=== PATIENT | female | born 1980 | race Caucasian/White ===

== ENCOUNTER → 2025-05-11 | Outpatient (CLI) | payer BC, SELFPAY ==
[2025-05-12 08:58] LABS: BVAG Candida Negative (Negative); Bacterial Vaginosis Markers Negative (Negative); Candida glabrata Negative (Negative); Candida krusei PCR Negative (Negative); Trichomonas Negative (Negative)
== END | disposition home or self-care (01) ==
LOC: SLDO 14:30
PROVIDERS: Referring Provider Specialist; Visit Provider Specialist
DX: B37.89 Other sites of candidiasis (principal); N76.0 Acute vaginitis; A59.01 Trichomonal vulvovaginitis
CPT/HCPCS: 81514

== ENCOUNTER → 2025-06-07 | Outpatient (CLI) | payer BC, SELFPAY ==
--- NOTE | 2025-06-07 10:30 | XR_ITS ---
Examination: Screening digital mammography, bilateral Computer aided detection 3-D breast Tomosynthesis, bilateral Date and time of exam: June 07, 2025 0958 hours Compared to mammograms dating to November 14, 2021 Indication: Screening Technique: Nonmagnified MLO, CC views of the breasts to been obtained, reconstructed from 3-D Tomosynthesis images. R2 computer aided detection program utilized for evaluation of suspicious masses and/or abnormal calcifications. 3-D Tomosynthesis images obtained. Findings: The breasts are heterogeneously dense, which may obscure small masses Circumscribed nodules left breast again noted likely corresponding to cyst described on left breast sonogram and right breast sonogram today No suspicious masses Impression: BI-RADS category II: Benign Findings. Recommend 1 year follow-up mammogram.
== END | disposition home or self-care (01) ==
LOC: CDIM 09:51
PROVIDERS: PCP Family Medicine; Referring Provider Specialist; Visit Provider Specialist
DX: Z12.31 Encounter for screening mammogram for malignant neoplasm of breast (principal)
CPT/HCPCS: 77063; 77067

== ENCOUNTER → 2025-06-09 | Outpatient (CLI) | payer BC, SELFPAY ==
[2025-06-10 09:10] LABS: BVAG Candida Negative (Negative); Bacterial Vaginosis Markers Negative (Negative); Candida glabrata Negative (Negative); Candida krusei PCR Negative (Negative); Trichomonas Negative (Negative)
== END | disposition home or self-care (01) ==
LOC: SLDO 14:46
PROVIDERS: Referring Provider Specialist; Visit Provider Specialist
DX: N76.0 Acute vaginitis (principal); A59.01 Trichomonal vulvovaginitis; B37.89 Other sites of candidiasis
CPT/HCPCS: 81514

== ENCOUNTER 2025-08-01 07:55 | Day surgery (SDC) | payer BC, SELFPAY ==
--- NOTE | 2025-07-29 10:58 | ESHP_ITS ---
RE: TULIO DAVNEPORT : 1980 DATE OF ADMISSION: 08/01/2025 HISTORY OF PRESENT ILLNESS: This is a 44-year-old 3, para 3 with cervical dysplasia, who presents for LEEP cone biopsy of the cervix. ALLERGIES: EFFEXOR. MEDICATIONS: Tri-Lo-Anabel control one p.o. daily. PAST MEDICAL HISTORY: Umbilical hernia and seasonal allergies. SOCIAL HISTORY: She is . She denies any alcohol, drug use, or smoking. FAMILY HISTORY: Diabetes, hypertension, heart disease, asthma. PAST SURGICAL HISTORY: Denies. REVIEW OF SYSTEMS: She denies any chest pain, palpitations, cough, fever, shortness of breath, or lower extremity pain. PHYSICAL EXAMINATION: VITAL SIGNS: Blood pressure 133/77, heart rate 84, respirations 18, temperature 98.6. HEENT: Oropharynx and sclerae are clear. LUNGS: Clear to auscultation bilaterally. HEART: Regular rate and rhythm. ABDOMEN: Nontender. EXTREMITIES: Nontender. SKIN: No gross rashes or lesions. NEUROLOGIC: No focal deficit. ASSESSMENT: Cervical dysplasia. PLAN: LEEP cone biopsy of the cervix. Informed consent was obtained. The patient was made aware of the risks, complications, alternatives, and benefits of the proposed procedure and she agrees. DT: ::51 TT: 10:57:00 Ref: [id number] - TID: [id number] MTDD
[2025-07-31 11:37] VITALS: BMI 23.3
[2025-07-31 12:19] LABS: Basophils # (Auto) 0.1 Thou/mm3 (0.0-0.2); Basophils % (Auto) 1 % (0-2.5); Eosinophils # (Auto) 0.2 Thou/mm3 (0.0-0.5); Eosinophils % (Auto) 3 % (0-10); Hematocrit 38.7 % (36.0-46.0); Hemoglobin 12.7 g/dL (12.0-16.0); Immature Granulocytes Auto 0.01 Thou/mm3 (0.00-0.00); Lymphocytes # (Auto) 1.7 Thou/mm3 (1.0-4.8); Lymphocytes % (Auto) 29 % (10-50); Mean Corpuscular HGB Conc 32.8 g/dl (31.0-37.0); Mean Corpuscular Hemoglobin 28.4 pg (25.0-35.0); Mean Corpuscular Volume 87 fL (80-100); Monocytes # (Auto) 0.5 Thou/mm3 (0.0-0.8); Monocytes % (Auto) 8 % (0-12); Neutrophils # (Auto) 3.4 Thou/mm3 (1.8-7.7); Neutrophils % (Auto) 59 % (37-80); Nucleated Red Blood Cell # 0.00 Thou/mm3 (0.00-0.00); Nucleated Red Blood Cell % 0 /100 WBC (0); Platelet Count 345 Thou/mm3 (140-440); RDW Standard Deviation 40.4 fL (36.4-46.3); Red Blood Count 4.47 Miln/mm3 (4.00-5.20); White Blood Count 5.9 Thou/mm3 (3.6-11.0)
[2025-07-31 12:34] LABS: INR 1.0 (0.9-1.3); Partial Thromboplastin Time 26.5 Seconds (22.0-36.0); Prothrombin Time 11.0 Seconds (9.0-12.2)
[2025-07-31 12:42] LABS: Alanine Aminotransferase 8 U/L (10-49); Albumin, Serum 4.3 gm/dL (3.5-5.0); Albumin/Globulin Ratio 1.7 (1.2-2.2); Alkaline Phosphatase 66 U/L (46-116); Anion Gap 9 (7-16); Aspartate Amino Transferase < 8 U/L (0-34); BUN/Creatinine Ratio 17 Ratio (12-20); Beta HCG,Quantitative < 1 mIU/mL (<5.0); Bilirubin,Total 0.4 mg/dL (0.3-1.2); Blood Urea Nitrogen 10 mg/dL (9-23); Calcium 9.5 mg/dL (8.3-10.6); Calcium (Corrected) 9.5 mg/dL (8.5-10.1); Carbon Dioxide 27.3 mMol/L (20.0-31.0); Chloride 104 mMol/L (98-107); Creatinine (Component) 0.6 mg/dL (0.6-1.3); Estimated Creatinine Clearance 116.4 mL/min (>60); Globulin 2.5 gm/dL (2.3-3.5); Glucose 91 mg/dL (74-106); Osmolality,Calculated 278 (275-295); Potassium 4.0 mMol/L (3.4-5.1); Sodium 140 mMol/L (136-145); Total Protein 6.8 gm/dL (5.7-8.2); eGFR > 60 See Note
[2025-08-01] VITALS (7 sets, daily range): BP systolic 116–124; BP diastolic 67–89; PULSE 84–100; RESP 12–16; TEMP 36.2–36.6; O2SAT 96–100; BMI 23.3
[2025-08-01] MEDS: RINGERS LACTATED 1000 ML 1,000 ML 30 ML IV (08:41)
--- NOTE | 2025-08-01 09:44 | CHAP ---
Visited with patient and giving encouragement and prayer.
--- NOTE | 2025-08-01 10:40 | SUR.PHASEI ---
1040: Pt. AAOx4, vitals stable, breathing unlabored, no complaint of pain or nausea, peripad in place CDI, no active bleed noted. Report received from Naty RAY and Ernesto PERERA.
--- NOTE | 2025-08-01 11:30 | SUR.PHASEII ---
1130: Pt. AAOx4, vitals stable, breathing unlabored, no complaint of pain or nausea, peripad in place CDI, no active bleed noted. Pt. tolerated sips of water well, pt. ambulated to wheelchair with steady gait and no assist, no complications. Gave discharge instructions to the pt. and her ride, both verbalized understanding and had no further questions. Pt. left with all personal belongings.
--- NOTE | 2025-08-03 08:46 | ESOP_ITS ---
RE: TULIO DAVENPORT : 1980 DATE OF OPERATION: 08/01/2025 PREOPERATIVE DIAGNOSIS: Cervical dysplasia. POSTOPERATIVE DIAGNOSIS: Cervical dysplasia. PROCEDURE: LEEP cone biopsy of the cervix. SURGEON: Abebe Rucker DO TUBE MOLDER FIBERGLASS: None. ANESTHESIA: General. ANESTHESIOLOGIST: Ernesto Smith CRNA. ESTIMATED BLOOD LOSS: 5 mL. COMPLICATIONS: None. COUNTS: Correct. PATHOLOGY: 1. A LEEP specimen inked at 12 o'clock. 2. Shavings from LEEP specimen at 3 and 6 o'clock. 3. Top hat specimen of the endocervix. FINDINGS: Grossly normal appearing cervix and transition zone. DESCRIPTION OF PROCEDURE: After appropriate informed consent was obtained and the patient was made aware of the risks, complications, alternatives, and benefits of the proposed procedure, she was taken to the operating room where she underwent induction of general anesthesia. She was placed in the dorsal lithotomy position. She was prepped and draped in a sterile fashion. A timeout was performed. Insulated speculum was placed in the vagina. The cervix was painted with Lugol's solution and the cervix was circumferentially injected with 10 mL of lidocaine 1% with epinephrine. Using the 2.0 x 2.0 loop electrode, the transition zone was excised and the specimen sent to pathology inked to 12 o'clock. Edges of the specimen were taken at 3 and 6 o'clock and these two shavings were sent to pathology as part of the second LEEP specimen. The top hat specimen was obtained using the 1.5 x 1.0 loop electrode and the endocervix specimen was obtained in the top hat and submitted to pathology. Hemostasis was achieved with the cautery. Safety backup hemostatic measure was to place an 0 Vicryl suture at 3 and 9 o'clock. All instruments were removed from the vagina. She was reversed from general anesthesia in the supine position and transferred to the recovery room in stable condition. She tolerated the procedure well. Counts were correct. I discussed with the patient's family the nature of her condition, intraoperative findings, expectation for recovery. All questions were answered. DT: 10:33:37 TT: 11:00:00 Ref: [id number] - TID: [id number]
== END 2025-08-01 11:30 | disposition home or self-care (01) ==
PROVIDERS: PCP Family Medicine; Referring Provider Specialist; Visit Provider Specialist
PROC: 0UBC7ZZ Excision of Cervix, Via Natural or Artificial Opening (ICD-10-PCS; CPT 57522; principal; 2025-08-01 10:15)
DX: N87.1 Moderate cervical dysplasia (principal); Z79.3 Long term (current) use of hormonal contraceptives
CPT/HCPCS: 57522; 36415; 80053; 84702; 85025; 85610; 85730; 86850; 86900; 86901; A4217; A4649; J0131; J0690; J1100; J1885; J2250; J2405; J2598; J2704; J2765; J3010; J3490; J7120; A9270